=== PATIENT | female | born 1935 | race Caucasian/White ===

== ENCOUNTER 2024-06-29 07:56 | Outpatient (CLI) | payer MEDICARE, SELFPAY ==
--- NOTE | ~2024-06-29 | MR_ITS ---
MRI of the cervical spine Clinical History: Spinal stenosis Technique: Axial T2-weighted and gradient images, and sagittal T1-weighted, T2-weighted, and STIR caleb ges were acquired. Findings: No acute fracture or subluxation seen. Bone marrow signals are unremarkable. At C2-C3, there is minimal disc bulge. No spinal canal stenosis or cord compression, or neural forami nal narrowing evident. At C3 and C4, there is moderate degenerative disc narrowing. There is disc osteophyte complex resulti ng in moderate canal stenosis and mild flattening of the cord. There is severe bilateral neural sudha inal narrowing at this level with bilateral facet arthropathy. At C4-C5, there is advanced degenerative disc narrowing. No significant disc bulge or herniation seen . There is mild canal stenosis without marcia cord compression. There is advanced bilateral neural for aminal narrowing with bilateral facet arthropathy. At C5-C6, there is moderate to advanced degenerative disc narrowing. There is mild canal stenosis wit h minimal disc bulge. There is severe bilateral neural foraminal narrowing with bilateral facet arthr opathy, right worse than left. At C6-C7, there is severe degenerative disc narrowing. Minimal disc bulge present. No canal stenosis or cord compression. There is bilateral neural foraminal narrowing and bilateral facet arthropathy. No abnormal signal seen in the spinal cord. Paravertebral soft tissues are unremarkable. Impression: Moderate to severe degenerative spondylosis, as detailed above. There is multilevel canal stenosis an d multilevel neural foraminal narrowing. Reviewed, dictated and finalized at [facility]. Impression: Moderate to severe degenerative spondylosis, as detailed above. There is multil evel canal stenosis and multilevel neural foraminal narrowing.
== END 2024-06-29 07:57 | disposition home or self-care (01) ==
LOC: MICIMG 07:58
PROVIDERS: PCP Internal Medicine Rheumatology; Visit Provider Internal Medicine Rheumatology
DX: M48.02 Spinal stenosis, cervical region (principal); M47.892 Other spondylosis, cervical region
CPT/HCPCS: 72141

== ENCOUNTER 2024-10-18 13:32 | Outpatient (CLI) | payer MEDICARE, SELFPAY ==
--- NOTE | ~2024-10-18 | US_ITS ---
EXAMINATION: US retroperitoneal duplex ltd DATE: 10/18/2024 14:38 INDICATION: Renal insufficiency. TECHNIQUE: Multiple grayscale, color Doppler, and pulsed Doppler images of the kidneys and renal kaur constantino were obtained. COMPARISON: None. FINDINGS: The aorta peak systolic velocity is 65 cm/s. The right renal artery peak systolic velocity is 64 cm/s in the proximal segment, 79 cm/s in the mid segment, and 47 cm/s in the distal segment. The left harjeet al artery peak systolic velocity is 137 cm/s in the proximal segment, 130 cm/s in the mid segment, an d 101 cm/s in the distal segment. IMPRESSION: 1. No Doppler evidence of renal artery stenosis. Reviewed, dictated and finalized at location A. INSTRUCTOR
--- NOTE | ~2024-10-18 | US_ITS ---
EXAMINATION: US renal BI DATE: 10/18/2024 14:38 INDICATION: Renal insufficiency. TECHNIQUE: Multiple ultrasound grayscale images of the kidneys were obtained. COMPARISON: None. FINDINGS: The right kidney measures 9.0 x 4.6 x 3.7 cm. The left kidney measures 9.8 x 4.6 x 4.5 cm. The kidney s demonstrate normal parenchymal echogenicity. There are 14 mm and 9 mm hypoechoic masses in the righ t kidney. There is no hydronephrosis. The bladder is normal. IMPRESSION: 1. Normal kidney sizes. No hydronephrosis. 2. Small masses in the right kidney, which may be hemorrhagic cysts or less likely renal cell carcino ma. Consider abdomen MRI without and with contrast. Reviewed, dictated and finalized at location A. L DELIVERY DRIVER IMPRESSION: 1. Normal kidney sizes. No hydronephrosis. 2. Small masses in the right kidney, which may be hemorrhagic cysts or less lik sharri renal cell carcinoma. Consider abdomen MRI without and with contrast.
--- NOTE | ~2024-10-18 | XR_ITS ---
EXAM: XR thoracic spine 2V DATE: 10/18/2024 14:27 HISTORY: Spinal deformity . COMPARISON: None available. FINDINGS: Aortic ectasia and atherosclerotic calcification. Possible cardiomegaly. Calcified hilar n odes. Severe lumbar scoliosis with compensatory curvature in the thoracic spine. Decreased mineraliza tion. Multilevel disc space narrowing mild height loss in several lower thoracic vertebral bodies, pr esumably chronic. Incidental note of mild anterolistheses in the lower cervical spine, probably secon cristopher to degenerative changes. Moderate hiatal hernia. IMPRESSION: Severe osteopenia. Multilevel mild vertebral body height loss in the lower thoracic spine , presumably representing chronic mild compression deformities. Severe lumbar scoliosis. Reviewed, dictated and finalized at location K. ONAL CHEF IMPRESSION: Severe osteopenia. Multilevel mild vertebral body height loss in th e lower thoracic spine, presumably representing chronic mild compression deform ities. Severe lumbar scoliosis.
== END 2024-10-18 13:33 | disposition home or self-care (01) ==
PROVIDERS: PCP Internal Medicine Rheumatology; Visit Provider Internal Medicine Rheumatology
DX: N28.9 Disorder of kidney and ureter, unspecified (principal); M85.88 Other specified disorders of bone density and structure, other site; M41.9 Scoliosis, unspecified
CPT/HCPCS: 72070; 76775; 93976